=== PATIENT | female | born 1995 ===

== ENCOUNTER 2024-01-28 21:37 | Inpatient (IN) | payer BC ==
[2024-01-28] MEDS: LACTATED RINGERS 1,000 ML IV ONE (22:25)
[2024-01-28 22:31] LABS: Basophils % (A) 0 %; Eosinophils % (A) 0 %; HGB 8.7 gm/dL (11.4-16.0); Hypochromasia Slight; Lymphocytes # (A) 0.5 k/uL (1.0-4.8); Lymphocytes % (A) 5 %; MCH 29.9 pg (25.0-35.0); MCHC 33.4 g/dL (31.0-37.0); MCV 89.5 fL (80.0-100.0); Mean Platelet Volume 8.5; Monocytes # (A) 0.3 k/uL (0-1.0); Monocytes % (A) 3 %; Neutrophils # (A) 9.3 k/uL (1.3-7.7); Neutrophils % (A) 91 %; Platelet Count 186 k/uL (150-450); WBC 10.2 k/uL (3.8-10.6)
[2024-01-28 22:37] LABS: Appearance,Urine Cloudy (Clear); Bacteria,Urine Many /hpf; Bilirubin,Urine Negative (Negative); Blood,Urine Small (Negative); Color,Urine Yellow; Glucose,Urine (UA) Negative (Negative); Hyaline Casts,Urine 1 /lpf (0-2); Ketones,Urine Negative (Negative); Leukocyte Esterase,Urine Moderate (Negative); Nitrite,Urine Negative (Negative); Protein,Urine 1+ (Negative); RBC,Urine 1 /hpf (0-5); Specific Gravity,Urine 1.022 (1.001-1.035); Squamous Epithelial Cell,Urine 7 /hpf (0-4); Urobilinogen,Urine <2.0 mg/dL (<2.0); WBC,Urine 7 /hpf (0-5)
[2024-01-28] MEDS: ACETAMINOPHEN TAB 500 MG TAB PO STA (23:42)
[2024-01-29] MEDS ORDERED: TERBUTALINE 1 MG/ML VIAL SQ PRN (00:04)
[2024-01-29] MEDS ORDERED: miSOPROStoL 200 MCG TAB PO PRN (00:04)
[2024-01-29] MEDS ORDERED: CARBOPROST TROMETHAMINE 250 MCG/ML 1 ML AMP IM PRN (00:04)
[2024-01-29] MEDS ORDERED: OXYTOCIN 10 UNIT/ML 1 ML VIAL IM PRN (00:04)
[2024-01-29] MEDS ORDERED: TRANEXAMIC 1,000 MG/100ML-NACL 1,000 MG in EMPTY BAG 1 BAG IV PRN (00:04)
--- NOTE | 2024-01-29 00:32 | P.HPOB ---
History of Present Illness H&P Date: 01/29/24 Chief Complaint: Contractions Ms. Ko is a 28 year old at 39 weeks and 4 days with EDC of 01/31/2024 by LMP consistent with 21 week US who presents to labor and delivery with regular, painful contractions and reported fever of 101 at home. She also complains of fatigue and body aches. The patient [place] and speaks very limited [place], her primary language is Kiswahili. She does have her close family friend here to help with interpretation. The fetus is estimated in the 32%ile for growth based on a 32 week US. history: 1 FTVD, no complications work-up: blood type A positive, antibody screen negative, rubella immune, VDRL non-reactive, HBsAg negative, HIV negative, gonorrhea negative, chlamydia negative, 1 hour GTT wnl, GBS negative. s/p TDap in 3rd trimester. Past Medical History History of Any Multi-Drug Resistant Organisms: None Reported Smoking Status: Never smoker Medications and Allergies Home Medications Medication Instructions Recorded Confirmed Type Aspirin [[place] Aspirin EC] 81 mg PO 01/28/24 History Folic Acid 0.4 mg PO 01/28/24 History Allergies Allergy/AdvReac Type Severity Reaction Status Date / Time Sulfa (Sulfonamide Allergy Rash/Hives Verified 01/28/24 21:41 Antibiotics) Exam Intake and Output 01/28/24 01/28/24 01/29/24 14:59 22:59 06:59 Other: Weight 67.132 kg Focused physical exam is performed. This is a healthy-appearing in no apparent distress. Breathing is non-labored. Abdomen is gravid and non-tender. Cervical exam is 5 cm, 90% effacement, -2 station per OB RN. Extremities non-tender and non-edematous. heart tones are Category I to II with some inital tachycardia 160s-170s baseline/moderate variability/ + accelerations/ - decelerations. and tocometer is graphing contractions every 5-7 minutes. Results Result Diagrams: 01/28/24 22:10 Abnormal Lab Results - Last 24 Hours (Table) 01/28/24 01/28/24 Range/Units 21:50 22:10 RBC 2.90 L (3.80-5.40) m/uL Hgb 8.7 L (11.4-16.0) gm/dL Hct 26.0 L (34.0-46.0) % RDW 16.0 H (11.5-15.5) % Neutrophils # 9.3 H (1.3-7.7) k/uL Lymphocytes # 0.5 L (1.0-4.8) k/uL Urine Appearance Cloudy H (Clear) Urine Protein 1+ H (Negative) Urine Blood Small H (Negative) Ur Leukocyte Esterase Moderate H (Negative) Urine WBC 7 H (0-5) /hpf Ur Squamous Epith Cells 7 H (0-4) /hpf Urine Bacteria Many H (None) /hpf Assessment and Plan Assessment: 28 year old at 39 weeks and 4 days in labor Plan: 1. Labor. Admit, clear liquid diet, plan for AROM, continuous EFM and tocometer. Epidural prn. Anticipate vaginal delivery. 2. Fever. No leukocytosis on WBC. UA negative. Will swab for COVID and influenza.
[2024-01-29] MEDS: LACTATED RINGERS 1,000 ML IV SCH (02:14)
--- NOTE | 2024-01-29 02:19 | P.MSEPDOC ---
Presenting Problems - Arrival Data Date of Arrival on Unit: 01/29/24 Time of Arrival on Unit: 21:37 Mode of Transport: Ambulatory - Complaint OB-Reason for Admission/Chief Complaint: Possible Onset of Labor Comment: 01/28/2024 at 1700 contractions started. Pt states she feels them every 3-7 minutes Medical History - Information : 3 Para: 1 Term: 1 : 0 Abortions: Spontaneous or Elective: 1 Number of Living Children: 1 - Gestational Age Gestational Age by VIOLETTA (wks/days): 39 Weeks and 5 Days Review of Systems - Review of Systems Constitutional: Fever Breast: No problems ENT: Cough Cardiovascular: No problems Respiratory: No problems Gastrointestinal: No problems Genitourinary: No problems Musculoskeletal: No problems Neurological: No problems Skin: No problems Vital Signs - Temperature Temperature: 98.8 F Temperature Source: Temporal Artery Scan - Pulse Right Pulse Oximetery Pulse Rate: 98 Pulse Assessment Method: Pulse Oximetry - Respirations Respiratory Rate: 18 - Blood Pressure Right Arm Blood Pressure: 136/75 Blood Pressure Mean: 95 Blood Pressure Source: Automatic Cuff Medical Screen Scoring - Cervical Exam Dilation (cm): 5 Effacement (%): 90 Station: -2 Membranes: Intact - Uterine Contractions Frequency From (mins): 2 Frequency To (mins): 7 Duration From (seconds): 50 Duration To (seconds): 70 Intensity: Moderate Resting: Soft to palpation - Assessment - Baby A Baseline FHR: 165 Heart Rate - NICHD Category: Category II (Indeterminate) NST: Reactive Physician Notification - Physician Notified Physician Notified Date: 01/29/24 Physician Notified Time: 22:02 Physician: Alicia Sanford New Order Received: Yes Maternal Triage Index - Maternal Triage Index Presenting for scheduled procedure w/no complaint: No - Stat/Priority 1 Stat Priority 1: No - Urgent/Priority 2 Urgent Priority 2: Yes Provider Notified: Alicia Sanford Provider Notified Time: 22:02 Criteria Met for Priority 2: FHR >160 Disposition - Disposition OB Disposition: Admit, LDRP Suite I agree with the RN Medical Screening Exam: Yes Case reviewed; plan agreed upon as documented in EMR&OBIX.: Yes Diagnosis: MATERNAL CARE FOR PROBLEM, UNSP, THIRD * DO NOT USE *
[2024-01-29] MEDS: OXYTOCIN 30 UNITS/500 ML NS 30 UNIT in SALINE 1 500ML.BAG IV SCH (04:39)
[2024-01-29] MEDS: METHYLERGONOVINE 0.2 MG/ML 1 ML AMP IM PRN (04:43)
[2024-01-29] MEDS: LIDOCAINE 0.5% (PF) 5 MG/ML (50 ML SDV) SQ PRN (04:44)
--- NOTE | 2024-01-29 05:23 | P.PROBDLV ---
Vaginal Delivery Note - . Vaginal Delivery Note: DATE OF SERVICE: 01/29/2024 PROCEDURE: Normal Vaginal Delivery ATTENDING: Dr. Alicia Sanford MD ESTIMATED BLOOD LOSS: 500 mL FINDINGS: VMI, Apgars 8/9. Weight 8 pounds and 4 ounces (3730 grams) PROCEDURE: Ms. Ko is a 28 year old at 39 weeks and 4 days presenting to labor and delivery in labor. The has been complicated by late presentation to care. For further details, please review the admitting H&P. AROM was performed at 0039. The patient declined epidural anesthesia. The patient was completely dilated at 521. She pushed effectively with Category I FHTs. A viable male infant was delivered at 436. The was placed on the maternal abdomen and bulb suctioned. The infant was noted to be spontaneously crying. Cord was clamped and cut after a 1-minute delay. The was handed off to the pediatric team. Placenta was delivered whole with gentle cord traction at 438. Oxytocin was started to facilitate uterine tone. The uterus was noted to be atonic and bleeding was brisk, so the oxytocin was run wide open and a dose of IM Methergine was given. At this time, the uterine fundus was found to be firm and below the umbilicus upon fundal massage. Bleeding was now minimal. Thorough examination of the cervix, vagina, periurethral area, and perineum revealed a large second degree perineal laceration. A rectal exam was performed to ensure no involvement of the rectum. The patient is stable and allowed to begin the bonding process.
[2024-01-29] MEDS ORDERED: diphenhydrAMINE 50 MG/ML 1 ML VIAL IVP PRN ×2 (05:24)
[2024-01-29] MEDS ORDERED: diphenhydrAMINE 25 MG CAP PO PRN (05:24)
[2024-01-29] MEDS ORDERED: BENZOCAINE/MENTHOL SPRAY 1 GM/SPRAY AEROSOL TOPICAL PRN (05:24)
[2024-01-29] MEDS ORDERED: diphenhydrAMINE 50 MG CAP PO PRN (05:24)
[2024-01-29] MEDS ORDERED: LANOLIN CREAM 1 GM TUBE TOPICAL PRN (05:24)
[2024-01-29] MEDS ORDERED: ZOLPIDEM 5 MG TAB PO PRN (05:24)
[2024-01-29] MEDS ORDERED: SIMETHICONE 80 MG CHEWABLE PO PRN (05:24)
[2024-01-29] MEDS ORDERED: HYDROCORTISONE 2.5% RECTAL CREAM 30 GM TUBE RECTAL PRN (05:24)
[2024-01-29] MEDS: IBUPROFEN 600 MG TAB PO PRN (05:57)
[2024-01-29] MEDS: ACETAMINOPHEN TAB 325 MG TAB PO PRN (10:10)
[2024-01-29] MEDS: guaiFENesin 600 MG TABLET.ER PO SCH (14:40)
[2024-01-29] MEDS: SENNOSIDES-DOCUSATE SODIUM 1 EACH TAB PO SCH (14:45)
[2024-01-29 15:00] VITALS: RESP 16
[2024-01-30 07:58] LABS: Anisocytosis Slight; Basophils % (A) 0 %; Eosinophils # (A) 0.1 k/uL (0-0.7); Eosinophils % (A) 1 %; HCT 20.6 % (34.0-46.0); Hypochromasia Slight; Lymphocytes # (A) 0.8 k/uL (1.0-4.8); Lymphocytes % (A) 10 %; MCH 29.5 pg (25.0-35.0); MCHC 32.4 g/dL (31.0-37.0); MCV 91.1 fL (80.0-100.0); Monocytes # (A) 0.3 k/uL (0-1.0); Monocytes % (A) 4 %; Neutrophils # (A) 6.7 k/uL (1.3-7.7); Neutrophils % (A) 85 %; Platelet Count 172 k/uL (150-450); RBC 2.26 m/uL (3.80-5.40); RDW 16.3 % (11.5-15.5)
[2024-01-30 08:14] LABS: HGB 6.7 gm/dL (11.4-16.0)
--- NOTE | 2024-01-30 11:21 | P.PNOBGVD ---
Subjective - Subjective Interval history: The patient continues to feel ill with a sore throat and some cough and low-g rade fever. Patient reports: Reports appetite normal, Reports voiding normally, Reports pain well controlled, Reports ambulating normally [place]: doing well Objective - Latest Vital Signs Latest vital signs: Vital Signs Temp Pulse Resp BP Pulse Ox 01/30/24 08:00 100.2 F H 95 16 122/76 98 01/30/24 00:00 98.0 F 98 16 100/60 98 01/29/24 16:00 98 F 60 16 126/70 01/29/24 12:00 98.2 F 62 16 120/79 - Exam Extremities: Present: normal Abdomen: Present: normal appearance, soft Uterus: Present: normal, firm - Labs Labs: Abnormal Lab Results - Last 24 Hours (Table) 01/30/24 Range/Units 07:22 RBC 2.26 L (3.80-5.40) m/uL Hgb 6.7 L* D (11.4-16.0) gm/dL Hct 20.6 L (34.0-46.0) % RDW 16.3 H (11.5-15.5) % Lymphocytes # 0.8 L (1.0-4.8) k/uL Assessment and Plan (1) Normal spontaneous vaginal delivery Current Visit: Yes Status: Acute Code(s): O80 - ENCOUNTER FOR FULL-TERM UNCOMPLICATED DELIVERY SNOMED Code(s): 11947459 (2) Viral syndrome Current Visit: Yes Status: Acute Code(s): B34.9 - VIRAL INFECTION, UNSPECIFIED SNOMED Code(s): 59948597 Plan: The infant remains in the special care nursery for antibiotic prophylaxis with a significantly elevated white count with significant left shift. The pediatrics provider has requested repeat testing for COVID, influenza, and RSV for the mother in order to provide more information for ongoing treatment with the . We otherwise will continue with routine care and symptomatic relief.
[2024-01-31 05:56] LABS: Anisocytosis Slight; Basophils % (A) 0 %; Eosinophils % (A) 1 %; Hypochromasia Slight; Lymphocytes # (A) 0.8 k/uL (1.0-4.8); Lymphocytes % (A) 13 %; MCH 29.2 pg (25.0-35.0); MCHC 32.1 g/dL (31.0-37.0); Mean Platelet Volume 8.3; Monocytes # (A) 0.3 k/uL (0-1.0); Monocytes % (A) 5 %; Neutrophils # (A) 4.8 k/uL (1.3-7.7); Neutrophils % (A) 78 %; Platelet Count 196 k/uL (150-450); RBC 2.14 m/uL (3.80-5.40); RDW 16.3 % (11.5-15.5); WBC 6.1 k/uL (3.8-10.6)
[2024-01-31 06:01] LABS: HGB 6.3 gm/dL (11.4-16.0)
[2024-01-31 06:02] LABS: HCT 19.5 % (34.0-46.0)
[2024-01-31 10:04] VITALS: BP 115/71; PULSE 101; TEMP 99.5
--- NOTE | 2024-01-31 10:08 | P.DS ---
Providers Date of admission: 01/29/24 00:06 Expected date of discharge: 01/31/24 Attending physician: Alicia Sanford MD Primary care physician: Stated None - Discharge Diagnosis(es) (1) Normal spontaneous vaginal delivery Current Visit: Yes Status: Acute (2) Viral syndrome Current Visit: Yes Status: Acute Hospital Course: The patient is a 28-year-old 3 para 1-0-1-1 admitted at 39-4/7 weeks by good dating parameters. She is admitted in early labor with all signs reassuri ng but does present with a fever of unknown origin, possible viral syndrome. She has felt poorly for some time and has had no antibiotics or other interventions. She speaks very limited Vietnamese as she is from [place] where her primary language is [place]ian. Her has reportedly been uncomplicated. On labor and delivery, she had artificial rupture of membranes carried out for clear fluid. She declined epidural intervention. She progressed to complete and then pushed to a normal spontaneous vaginal delivery of a viable 8 pound 4 ounce baby boy with Apgars of 8 at 1 minute and 9 at 5 minutes. The patient's course was complicated by continuing to feel poorly with a suspected viral syndrome. White blood cell counts remained for 2 days in a row in the normal range with no evidence of left shift. She was afebrile throughout her stay here. She additionally underwent testing for COVID, influenza, and RSV which were negative on 2 separate occasions. The infant was taken to the special care nursery where he is receiving antibiotic treatment for a significantly elevated white count with left shift. Upon presentation, the patient was fairly significantly anemic with a hemoglobin of 8.7. day #1, her hemoglobin was noted to be 6.7 at which time she was asymptomatic for signs and symptoms of orthostasis. The CBC was repeated the following day to check white cell count at which time the hemoglobin was noted to be 6.3 and reported as "critical" by the lab. The patient remains completely asymptomatic and denies any significant vaginal bleeding. Her primary concern is for generalized aching as well as sore and scratchy throat with cough and some congestion. Despite her low hemoglobin and secondary to her lack of symptoms, she was deemed stable for discharge on day #2 and was discharged home to follow-up in the office in 6 weeks time routinely. Discharge instructions included calling for any significantly increased bleeding or foul-smelling lochia, significantly increased fever or abdominal pain, perineal complaints, breast complaints, or anything else that concerned her. She was additionally instructed to have nothing in the vagina for at least 6 weeks time to include intercourse. She understood her instructions and agrees to follow-up as noted above. Discharge medications included only [id number] analgesic pain m edications as well as continued vitamins as she has opted to breast- feed. I also have instructed her to use iron sulfate 325 mg 1-2 times daily for at least 1 month to rebuild her hemoglobin. She was given additional instructions to call or return for any significantly increased vaginal bleeding or signs and symptoms of orthostasis given her current low hemoglobin. Maternal blood type is a positive and rubella status is immune. Procedures: #1. Artificial rupture of membranes #2. Normal spontaneous vaginal delivery #3. Repair of perineal laceration Patient Condition at Discharge: Stable Plan - Discharge Summary New Discharge Prescriptions: No Action Folic Acid 0.4 mg PO Aspirin [[place] Aspirin EC] 81 mg PO Discharge Medication List Aspirin [[place] Aspirin EC] 81 mg PO 01/28/24 [History] Folic Acid 0.4 mg PO 01/28/24 [History] Follow up Appointment(s)/Referral(s): Alicia Sanford MD [STAFF PHYSICIAN] - 03/15/24 1:15 pm Discharge Disposition: HOME SELF-CARE
== END 2024-01-31 13:15 | disposition home or self-care (01) | DRG 806 ==
LOC: FBPOP 21:37 → 4FBP 01-29 00:06
PROVIDERS: ADMIT Obstetrics & Gynecology; ATTEND Obstetrics & Gynecology
PROC: 10E0XZZ Delivery of Products of Conception, External Approach (ICD-10-PCS; principal; 2024-01-29)
PROC: 0KQM0ZZ Repair Perineum Muscle, Open Approach (ICD-10-PCS; 2024-01-29)
PROC: 10907ZC Drainage of Amniotic Fluid, Therapeutic from Products of Conception, Via Natural or Artificial Opening (ICD-10-PCS; 2024-01-29)
DX: O98.52 Other viral diseases complicating childbirth (principal); O72.1 Other immediate postpartum hemorrhage; Z37.0 Single live birth; B34.9 Viral infection, unspecified; O70.1 Second degree perineal laceration during delivery; O99.02 Anemia complicating childbirth; Z3A.39 39 weeks gestation of pregnancy; Z11.52 Encounter for screening for COVID-19
CPT/HCPCS: 59025; 81001; 85025; 86850; 86900; 86901; 87636; 96360; 99214